=== PATIENT | female | born 1945 | race Two or more races ===

== ENCOUNTER 2017-12-15 08:35 | Day surgery (SDC) | payer OTHER ==
[~2017-12-15 08:35] MED LIST: METFORMIN HCL500 MG PO
== END 2017-12-15 14:30 | disposition home or self-care (01) ==
LOC: AMB-ENDOS 08:35
DX: C20 Malignant neoplasm of rectum (principal)

== ENCOUNTER 2019-02-01 06:51 | Day surgery (SDC) | payer OTHER | END 2019-02-01 11:55 | disposition home or self-care (01) | LOC: AMB-ENDOS 06:51 | DX: K64.1 Second degree hemorrhoids (principal) ==

== ENCOUNTER 2021-03-26 07:14 | Day surgery (SDC) | payer OTHER | END 2021-03-26 13:25 | disposition home or self-care (01) | LOC: AMB-ENDOS 07:14 | PROVIDERS: ATTEND Colon & Rectal Surgery | DX: D12.3 Benign neoplasm of transverse colon (principal); K64.2 Third degree hemorrhoids; Z20.822 Contact with and (suspected) exposure to COVID-19 ==

== ENCOUNTER 2022-11-22 12:12 | Emergency (ER) | payer OTHER ==
[~2022-11-22] VITALS: Ht 160 cm; Wt 81.6 kg
== END 2022-11-22 17:30 | disposition home or self-care (01) ==
LOC: ER 12:12
DX: M54.50 Low back pain, unspecified (principal)